=== PATIENT | female | born 1955 | race Asian ===

== ENCOUNTER 2020-08-28 06:15 | Day surgery (SDC) | payer OTHER, SELFPAY ==
[~2020-08-28] VITALS: Ht 157.5 cm; Wt 52.2 kg
[2020-08-28] MEDS ORDERED: fentaNYL citrate 0.05 MG/ML VIAL ONE (09:27)
[2020-08-28] MEDS ORDERED: MIDAZOLAM 5 MG/5 ML VIAL ONE (09:27)
[2020-08-28] MEDS ORDERED: MIDAZOLAM 2 MG/2 ML VIAL IVP ONE (09:50)
== END 2020-08-28 10:10 | disposition home or self-care (01) ==
LOC: MDS 06:15 → MMU 06:16 → MDS 10:10
PROVIDERS: ATTEND Internal Medicine Gastroenterology
DX: R14.0 Abdominal distension (gaseous) (principal); K29.70 Gastritis, unspecified, without bleeding; E78.00 Pure hypercholesterolemia, unspecified; K22.2 Esophageal obstruction; R11.0 Nausea; Z20.828 Contact with and (suspected) exposure to other viral communicable diseases; Z79.899 Other long term (current) drug therapy
CPT/HCPCS: 36415; 43239; 86677; 87426; J2250; U0003; J3010